=== PATIENT | female | born 1985 | race Caucasian/White ===

== ENCOUNTER 2016-10-18 11:35 | Emergency (ER) | payer OTHER ==
[2016-10-18] MEDS ORDERED: Sodium Chloride 0.9% 1,000 ML IV ONE (13:02)
[2016-10-18 13:18] LABS: BASO % 0.7 % (0.0-2.0); EOS % 0.5 % (0.0-4.0); HEMATOCRIT 41.6 % (34.0-47.0); LYMPH # 1.4 K/uL (1.0-4.3); LYMPH % 19.7 % (20.0-40.0); MEAN CELL VOLUME 91.9 fL (81.0-99.0); MEAN CORPUSCULAR HEMOGLOBIN 31.7 pg (27.0-31.0); MEAN CORPUSCULAR HGB CONC 34.5 g/dL (33.0-37.0); MEAN PLATELET VOLUME 9.6 fL (7.2-11.7); MONO # 0.5 K/uL (0.0-0.8); MONO % 7.3 % (0.0-10.0); NRBC % 0.1 % (0.0-2.0); RED CELL DISTRIBUTION WIDTH 12.3 % (11.5-14.5); WHITE BLOOD COUNT 7.1 K/uL (4.8-10.8)
[2016-10-18 13:23] LABS: CHLORIDE 98 mmol/L (98-107); SODIUM 135 mmol/L (132-148)
[2016-10-18 13:26] LABS: ALKALINE PHOSPHATASE 76 U/L (38-126); AST/SGOT 28 U/L (14-36); BILIRUBIN,TOTAL 0.9 mg/dL (0.2-1.3); BLOOD UREA NITROGEN 5 mg/dL (7-17); CARBON DIOXIDE 23 mmol/L (22-30); GFR AFRICAN-AMERICAN > 60; GLUCOSE,RANDOM 94 mg/dL (65-105); TOTAL PROTEIN 7.6 g/dL (6.3-8.3)
[2016-10-18 13:27] LABS: ALT/SGPT 19 U/L (9-52); CALCIUM 9.6 mg/dl (8.6-10.4)
[2016-10-18 13:28] LABS: RBC URINE 24 /hpf (0-3); URINE BACTERIA OCC (<OCC); URINE BILIRUBIN NEGATIVE (NEGATIVE); URINE BLOOD 1+ (NEGATIVE); URINE COLOR Amber (YELLOW); URINE GLUCOSE (UA) NORMAL (Normal); URINE KETONE 1+ mg/dL (NEGATIVE); URINE LEUKOCYTE ESTERASE 3+ Leu/uL (Negative); URINE PROTEIN 1+ mg/dL (NEGATIVE); URINE UROBILINOGEN NORMAL mg/dL (0.2-1.0); WBC URINE 58 /hpf (0-5)
[2016-10-18 13:46] LABS: POTASSIUM 4.2 mmol/L (3.6-5.2)
--- NOTE | 2016-10-18 13:48 | C.PDOC ---
History Per: Patient History/Exam Limitations: no limitations Onset/Duration Of Symptoms: Days Current Symptoms Are (Timing): Still Present Location Of Pain/Discomfort: Suprapubic <Darin YOUNGMarco A Last Filed: 10/18/16 13:45> <Taryn De Oliveira - Last Filed: 10/18/16 13:57> Time Seen by Provider: 10/18/16 12:20 Chief Complaint (Nursing): Abdominal Pain Past Medical History Reviewed: Historical Data, Nursing Documentation, Vital Signs Family History: States: No Known Family Hx - Social History Hx Alcohol Use: No Hx Substance Use: No - Immunization History Hx Tetanus Toxoid Vaccination: No Hx Influenza Vaccination: No Hx Pneumococcal Vaccination: No <Darin YOUNGMarco A Badillo Last Filed: 10/18/16 13:45> Review Of Systems Constitutional: Negative for: Fever, Chills Gastrointestinal: Positive for: Nausea, Vomiting, Abdominal Pain. Negative for : Diarrhea, Hematemesis Genitourinary: Negative for: Dysuria, Hematuria, Vaginal Bleeding Musculoskeletal: Negative for: Back Pain Skin: Negative for: Rash Neurological: Positive for: Headache. Negative for: Weakness, Numbness <Darin YOUNGMarco A Badillo Last Filed: 10/18/16 13:45> Physical Exam - Physical Exam Appears: Non-toxic, No Acute Distress Skin: Normal Color, Warm, Dry, No Rash Head: Atraumatic, Normacephalic Eye(s): bilateral: Normal Inspection, PERRL, EOMI, Other (No nystagmus) Nose: Normal Oral Mucosa: Dry, No Drooling Neck: Normal ROM, Supple Chest: Symmetrical Cardiovascular: Rhythm Regular Respiratory: Normal Breath Sounds, No Rales, No Rhonchi, No Wheezing Gastrointestinal/Abdominal: Soft, No Tenderness, No Guarding, No Rebound Extremity: Normal ROM, Capillary Refill (<2 seconds) Neurological/Psych: Oriented x3, Normal Speech, Normal Cognition, Normal Cranial Nerves, Normal Motor, Normal Sensation <Darin YOUNGMarco A Badillo Last Filed: 10/18/16 13:45> ED Course And Treatment - Laboratory Results Result Diagrams: 10/18/16 13:12 10/18/16 13:12 O2 Sat by Pulse Oximetry: 99 (RA) Pulse Ox Interpretation: Normal <Darin YOUNGMarco A Badillo Last Filed: 10/18/16 13:45> - Laboratory Results Result Diagrams: 10/18/16 13:12 10/18/16 13:12 <Taryn De Oliveira - Last Filed: 10/18/16 13:57> Medical Decision Making <Marco A Webster DO - Last Filed: 10/18/16 13:45> <Taryn De Oliveira - Last Filed: 10/18/16 13:57> Medical Decision Making: Plan: * Pain medication * Ultrasound abdomen (Marco A Webster DO) Disposition <Marco A Webster DO - Last Filed: 10/18/16 13:45> <Taryn De Oliveira - Last Filed: 10/18/16 13:57> - Disposition Forms: [employer] (Russian) - 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 - Scribe Statement The provider has reviewed the documentation as recorded by the Scribe <Marco A Webster DO - Last Filed: 10/18/16 13:45> <Taryn De Oliveira - Last Filed: 10/18/16 13:57> - Scribe Statement Kt Pacheco All medical record entries made by the Scribe were at my direction and personally dictated by me. I have reviewed the chart and agree that the record accurately reflects my personal performance of the history, physical exam, medical decision making, and the department course for this patient. I have also personally directed, reviewed, and agree with the discharge instructions and disposition. (Marco A Webster DO)
--- NOTE | 2016-10-18 13:59 | C.PDOC ---
History Of Present Illness 31 y/o female presents to ED with complaints of diffuse headache for 2 days with associated nausea and multiple episodes of vomiting. Patient also reports suprapubic abdominal pain and reports yellow fluid when vomiting. Patient reports headache gradually worsening and denies neck stiffness, fever, vaginal bleeding,urinary symptoms, back pain or any other complaints at this time. LMP 08/21/16 Pt has appt for care on 10/31. Time Seen by Provider: 10/18/16 12:20 Chief Complaint (Nursing): Abdominal Pain History Per: Patient History/Exam Limitations: no limitations Onset/Duration Of Symptoms: Days Current Symptoms Are (Timing): Still Present Location Of Pain/Discomfort: Suprapubic Past Medical History Reviewed: Historical Data, Nursing Documentation, Vital Signs Vital Signs: Last Vital Signs Temp 98.9 F 10/18/16 16:22 Pulse 73 10/18/16 16:22 Resp 18 10/18/16 16:22 BP 104/61 10/18/16 16:22 Pulse Ox 99 10/21/16 08:19 Family History: States: No Known Family Hx - Social History Hx Alcohol Use: No Hx Substance Use: No - Immunization History Hx Tetanus Toxoid Vaccination: No Hx Influenza Vaccination: No Hx Pneumococcal Vaccination: No Review Of Systems Constitutional: Negative for: Fever, Chills Gastrointestinal: Positive for: Nausea, Vomiting, Abdominal Pain. Negative for : Diarrhea Genitourinary: Negative for: Dysuria, Frequency, Hematuria, Vaginal Bleeding Musculoskeletal: Negative for: Neck Pain, Back Pain Skin: Negative for: Rash Neurological: Negative for: Weakness, Numbness Physical Exam - Physical Exam Appears: Non-toxic, No Acute Distress Skin: Normal Color, Warm, Dry, No Rash Head: Atraumatic, Normacephalic Eye(s): bilateral: PERRL, EOMI, Other (No nystagmus) Nose: Normal Oral Mucosa: Dry, No Drooling Neck: Normal ROM, Supple Chest: Symmetrical Cardiovascular: Rhythm Regular, No Murmur Respiratory: Normal Breath Sounds, No Rales, No Rhonchi, No Wheezing Gastrointestinal/Abdominal: Soft, No Tenderness, No Guarding, No Rebound Neurological/Psych: Oriented x3, Normal Speech, Normal Cognition, Normal Cranial Nerves, Normal Motor, Normal Sensation ED Course And Treatment - Laboratory Results Result Diagrams: 10/18/16 13:12 10/18/16 13:12 O2 Sat by Pulse Oximetry: 99 (RA) Pulse Ox Interpretation: Normal Medical Decision Making Medical Decision Making: Plan: * Pain medication * Ultrasound * 4 pm pt feeling much better. no headache, no nausea, no ab pain, no vomiting. 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 [place] Metoclopramide si tiene n useas cada 8 horas. [place] los antibiticos segn lo prescrito para la infeccin de orina., Drink[place] aumento de lquidos. Vuelva a la isabel de emergencias para cualquier sntoma peor. 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 - Scribe Statement The provider has reviewed the documentation as recorded by the Grover Pacheco All medical record entries made by the Leahibaleksandar were at my direction and personally dictated by me. I have reviewed the chart and agree that the record accurately reflects my personal performance of the history, physical exam, medical decision making, and the department course for this patient. I have also personally directed, reviewed, and agree with the discharge instructions and disposition.
--- NOTE | 2016-10-18 14:48 | US ---
Indication: Lower abdominal pain, Comparison: None available Technique: Transabdominal pelvic ultrasound Findings: The uterus measures approximately 10.5 x 5.8 x 6.4 cm. Anteverted. Cervix length measures approximately 3.3 cm. There is a single intrauterine fetus present. 3 mm yolk sac. The gestational sac measures 3.8 cm and is compatible with a gestational age of 9 weeks 0 days. The crown-rump length measures 1.9 cm and is compatible with a gestational age of 8 weeks 3 days. There is heart motion which measured 156.6 BPM. The right ovary measures 3.0 x 2.4 x 3.1 cm. The left ovary measures 2.1 x 1.5 x 1.9 cm. Blood flow was demonstrated to both ovaries. Impression: Live single intrauterine with estimated gestational age 9 weeks 0 days by gestational sac calculation and 8 weeks 3 days by crown-rump length calculation. heart rate 156.6 bpm. Advise an anomaly screen at 16-18 weeks gestational age.
[2016-10-18 16:23] VITALS: BP 104/61; PULSE 73; RESP 18; TEMP 98.9
[2016-10-21 08:20] VITALS: O2SAT 99
== END 2016-10-18 16:23 | disposition home or self-care (01) ==
LOC: C.ER 11:35
DX: O21.0 Mild hyperemesis gravidarum (principal); O23.41 Unspecified infection of urinary tract in pregnancy, first trimester; R51 Headache; Z3A.09 9 weeks gestation of pregnancy
CPT/HCPCS: 76801; 80053; 81001; 84702; 85025; 96361; 96374; 96375; 99285; J2765; J7040